=== PATIENT | female | born 1985 | race American Indian/Alaskan Native ===

== ENCOUNTER 2017-05-17 20:58 | Emergency (ER) | payer OTHER ==
--- NOTE | 2017-05-18 00:19 | Emergency Department Report ---
HPI - General Chief Complaint: Vaginal Bleeding Time Seen by Provider: 05/17/17 23:44 - HPI HPI: This is a 32-year-old female presents to the emergency department via EMS from home after passing out. The patient is about 7 weeks' and took Mifeprostone in order to terminate her . She says around noon he began working and she had abdominal and pelvic cramping and a large amount of vaginal bleeding with clots. This evening she was sitting on the toilet and was feeling dizzy and then went up to tell her significant other and ended up passing out. They called EMS and found the patient to be slightly hypotensive. She was given 1 L of IV fluid and now says that she is asymptomatic and has no complaints. She denies any past medical history. She is not currently on an [employer]. The medication was prescribed through the [facility]. The patient has had a previous ultrasound showing intrauterine . With this she is with one previous and one previous miscarriage. ED Past Medical Hx - Past Medical History Previous Medical History?: No - Surgical History Past Surgical History?: Yes Hx Appendectomy: Yes Additional Surgical History: - Social History Smoking Status: Never Smoker Substance Use Type: None - Medications Home Medications: Home Medications Medication Instructions Recorded Confirmed Last Taken Type No Known Home Medications [No 05/17/17 05/17/17 Unknown History Reported Home Medications] ED Review of Systems ROS: Stated complaint: VAGINAL BLEEDING Other details as noted in HPI Comment: All other systems reviewed and negative Constitutional: denies: chills, fever Eyes: denies: eye pain, eye discharge, vision change ENT: denies: ear pain, throat pain Respiratory: denies: cough, shortness of breath, wheezing Cardiovascular: syncope. denies: chest pain, palpitations Gastrointestinal: abdominal pain. denies: vomiting Genitourinary: other (vaginal bleeding). denies: urgency, dysuria, discharge Musculoskeletal: denies: back pain, joint swelling, arthralgia Skin: denies: rash, lesions Neurological: denies: headache, weakness, paresthesias Physical Exam - Physical Exam Vital Signs: Vital Signs 05/17/17 23:14 Temperature 98 F Pulse Rate 88 Respiratory 16 Rate Blood Pressure 105/76 O2 Sat by Pulse 100 Oximetry Physical Exam: GENERAL: The patient is well-developed well-nourished. HENT: Normocephalic. Atraumatic. Patient has moist mucous membranes. EYES: Extraocular motions are intact. Pupils equal reactive to light bilaterally. No nystagmus. NECK: Supple. Trachea is midline. CHEST/LUNGS: Clear to auscultation. There is no respiratory distress noted. HEART/CARDIOVASCULAR: Regular. There is no tachycardia. There is no murmur. ABDOMEN: Abdomen is soft, nontender. Patient has normal bowel sounds. There is no abdominal distention. SKIN: Skin is warm and dry. NEURO: The patient is awake, alert, and oriented. The patient is cooperative. The patient has no focal neurologic deficits. The patient has normal speech. MUSCULOSKELETAL: There is no tenderness or deformity. There is no limitation range of motion. There is no evidence of acute injury. Muscle strength 5 out of 5 upper and lower extremities ED Course Vital Signs 05/17/17 23:14 Temperature 98 F Pulse Rate 88 Respiratory 16 Rate Blood Pressure 105/76 O2 Sat by Pulse 100 Oximetry ED Medical Decision Making - Lab Data Result diagrams: 05/17/17 00:30 05/17/17 00:30 - EKG Data -: EKG Interpreted by Me EKG shows normal: sinus rhythm, axis, intervals, QRS complexes, ST-T waves ( borderline T-wave inversions to the anterior leads) Rate: normal - EKG Data When compared to previous EKG there are: previous EKG unavailable Interpretation: other (sinus rhythm, normal axis, normal intervals. No ST elevation [place]) - Medical Decision Making The patient had a syncopal episode after taking an pill and having abdominal cramping and heavy vaginal bleeding. The second episode occurred after she was getting up from the toilet. At first patient did not want any labs or imaging done. She allowed me to get a CBC, which did not show any leukocytosis or significant anemia. She allowed me to get a metabolic panel which did not show any electrolyte Abnormalities or hypoglycemia. We got an EKG that did not show any signs of ST elevation [place], ischemia or dysrhythmia. She would not allow an ultrasound to be done but says that she previously had confirmation of an intrauterine . She says that she has good follow- up to look into whether the was successful and for any further [employer] complications. Patient appeared to have positive orthostatic vital signs here. She received some IV fluid and then was seen laboratory in the emergency department and appeared stable and says she is feeling much better and asking for discharge home. She was encouraged to return to the emergency Department with any worsening of her symptoms or any acute distress. - Differential Diagnosis vasovagal, orthostatic hypotension, TIA, hypoglycemia, symptomatically anem Critical Care Time: No Critical care attestation.: If time is entered above; I have spent that time in minutes in the direct care of this critically ill patient, excluding procedure time. ED Disposition Clinical Impression: Orthostatic hypotension, Dehydration Syncope Qualifiers: Syncope type: unspecified Qualified Code(s): R55 - Syncope and collapse Disposition: DC- TO HOME OR SELFCARE Is pt being admited?: No Condition: Stable Instructions: Syncope (ED), Hypotension (ED) Additional Instructions: Please follow-up with your women's clinic or an [facility] regarding your vaginal bleeding and elective . Increase your oral rehydration. Return to the emergency Department with any worsening of your symptoms or any acute distress. Referrals: [facility] [Provider Group] - 3-5 Days [facility] [Provider Group] - 3-5 Days Forms: Accompanied Note, Work/School Release Form(ED)
[2017-05-18] MEDS ORDERED: NACL 0.9% 1000 ML 1,000 ML ONE (00:42)
[2017-05-18 01:03] LABS: Basophils # (Auto) 0.1 K/mm3 (0.0-0.1); Basophils % (Auto) 0.6 % (0.0-1.8); Eosinophils % (Auto) 0.3 % (0.0-4.3); Hematocrit 33.6 % (30.3-42.9); Hemoglobin 11.8 gm/dl (10.1-14.3); Lymphocytes # (Auto) 2.3 K/mm3 (1.2-5.4); Mean Corpuscular HGB Conc 35 % (30-34); Mean Corpuscular Hemoglobin 28 pg (28-32); Mean Corpuscular Volume 81 fl (79-97); Monocytes # (Auto) 0.8 K/mm3 (0.0-0.8); Monocytes % (Auto) 6.4 % (0.0-7.3); Platelet Count 349 K/mm3 (140-440); Red Blood Count 4.16 M/mm3 (3.65-5.03)
[2017-05-18 01:18] LABS: BUN/Creatinine Ratio 12; Blood Urea Nitrogen 6 mg/dL (7-17); Calcium 8.6 mg/dL (8.4-10.2); Hemolysis Index 1
[2017-05-18] MEDS ORDERED: NACL 0.9% 1000 ML 1,000 ML IV ONE (01:52)
[2017-05-18 03:47] VITALS: BP 122/78
== END 2017-05-18 03:30 | disposition home or self-care (01) ==
LOC: ED 20:58
DX: O99.281 Endocrine, nutritional and metabolic diseases complicating pregnancy, first trimester (principal); E86.0 Dehydration; I95.1 Orthostatic hypotension; O46.8X1 Other antepartum hemorrhage, first trimester; Z3A.01 Less than 8 weeks gestation of pregnancy; Z90.49 Acquired absence of other specified parts of digestive tract
CPT/HCPCS: 36415; 80048; 85025; 93005; 93010; 96360; 96361; 99283; J7030